=== PATIENT | female | born 1935 | race Hispanic/Latino ===

== ENCOUNTER 2018-08-09 07:20 | Outpatient (CLI) | payer MEDICARE | END 2018-08-09 07:21 | disposition home or self-care (01) | LOC: C.LAB 07:20 | DX: D64.9 Anemia, unspecified (principal); R07.9 Chest pain, unspecified; I11.9 Hypertensive heart disease without heart failure; E11.9 Type 2 diabetes mellitus without complications ==

== ENCOUNTER 2018-08-10 11:21 | Day surgery (SDC) | payer MEDICARE ==
[2018-08-09 07:27] VITALS: BMI 26.4
[~2018-08-10 11:21] MED LIST: Lactated Ringer's 500 ML IV ONE; Phenylephrine 2.5% Opht Soln OS SCH; Tropicamide 0.5% Opht Sol OS SCH
[2018-08-10] MEDS ORDERED: Lactated Ringer's 500 ML IV ONE (12:41)
[2018-08-10] MEDS ORDERED: Phenylephrine 2.5% Opht Soln ONE (13:00)
[2018-08-10] MEDS ORDERED: Hyaluronate Sodium 10 mg/ml Ophth Syringe ONE (13:03)
[2018-08-10] MEDS ORDERED: Hyaluronidase Human, Recombi 150 U/ML VIAL ONE (13:13)
[2018-08-10] MEDS ORDERED: Tropicamide 1% Opht SOLUTION OS ONE (13:30)
[2018-08-10] MEDS ORDERED: Carbachol 0.01% IO ONE (13:53)
[2018-08-10] MEDS ORDERED: Lidocaine Hydrochloride 5 ML INJ ONE (14:22)
[2018-08-10] MEDS ORDERED: Propofol 10 mg/ml Inj (20 ML) ONE (14:47)
[2018-08-10] MEDS: Gentamicin 80 mg/2mL Inj. ONE ×3 (15:05→15:40)
[2018-08-10] MEDS: MethylPREDNISolone 40 mg Vial ONE ×3 (15:06→15:40)
[2018-08-10 16:42] VITALS: BP 152/68
[2018-08-10 17:08] VITALS: PULSE 88; RESP 18; TEMP 97; O2SAT 99
--- NOTE | 2018-08-11 03:54 | OP ---
PROCEDURE DATE: 08/10/2018 PREOPERATIVE DIAGNOSIS: Bullous keratopathy, left eye. POSTOPERATIVE DIAGNOSIS: Bullous keratopathy, left eye. OPERATIVE PROCEDURE: Descemet stripping endothelial keratoplasty, left eye. ATTENDING: García Caruso MD ANESTHESIA: Retrobulbar block with sedation. COMPLICATIONS: None. ESTIMATED BLOOD LOSS: 0.5 mL. DESCRIPTION OF PROCEDURE: The patient was brought to the operating room and properly identified. Anesthesia staff gave IV sedation. Retrobulbar block was given to the left eye with no complication. The patient was then prepped and draped in the usual sterile fashion. Superiorly, lid speculum was placed in the eye. There was noted to be a glaucoma tube temporarily, so the scleral tunnel was made little bit more nasal, so starting the case Chris scissors was used create a limbal peritomy. A scleral tunnel was created using a keratome blade. Once this was complete, two sideport incisions were made. The anterior chamber was then deepened using Provisc. Once it was deepened, an 8.5 mm marker was placed on the cornea. The anterior chamber was entered through the scleral tunnel using a Reverse Sinskey. The Descemet membrane was scored, then it was carefully removed using Utrata forceps. A Red Scraper was used to scrape the stromal portion. Three stab incisions were placed into the cornea. Once this was complete, automated I and A was used to remove the remaining viscoelastic. Miostat was used to shrink the pupil. Attention was then turned to the donor tissue. An 8.5 mm donor punch was then created. This was brought to the eye. The lenticule was then folded in a taco fashion. Using Joe forceps, the lenticule was then introduced into the anterior chamber. The wound was closed with 10-0 nylon sutures which were buried. The lenticule was then unfolded using a 30-gauge needle on air through the side incision. Once it was unfolded, the anterior chamber was deepened with air. Dilating drops were placed on the eye every 5 minutes for 10 minutes. Once this was complete, BSS was introduced into the chamber to shrink the bubble. antibiotics and steroids had been given. The eye was covered with soft patch and shield. The patient was returned to the recovery room in stable condition. García Caruso MD
== END 2018-08-10 17:13 | disposition home or self-care (01) ==
LOC: C.SDS 11:21
PROVIDERS: ATTEND Ophthalmology
DX: H18.12 Bullous keratopathy, left eye (principal)
CPT/HCPCS: 65756; J1580; J2704; J2920; J3470; J7120